=== PATIENT | female | born 1995 | race Caucasian/White ===

== ENCOUNTER 2023-11-03 23:57 | Emergency (ER) | payer OTHER ==
[~2023-11-03] VITALS: Ht 175.3 cm; Wt 131.8 kg
[2023-11-04 00:03] VITALS: TEMP 98.3
[2023-11-04 01:20] VITALS: BP 116/85; PULSE 71
== END 2023-11-04 01:20 | disposition home or self-care (01) ==
LOC: COL.ER 23:57
DX: S01.112A Laceration without foreign body of left eyelid and periocular area, initial encounter (principal); W54.1XXA Struck by dog, initial encounter